=== PATIENT | male | born 1975 | race Caucasian/White ===

== ENCOUNTER 2020-01-19 03:32 | Emergency (ER) | payer SELFPAY ==
[~2020-01-19] VITALS: Ht 167.6 cm; Wt 69.0 kg
[2020-01-19] MEDS ORDERED: SODIUM CHLORIDE 0.9% 1,000 ML IV ONE (03:56)
[2020-01-19] MEDS ORDERED: LORAZEPAM 2MG/ML CPJ IM STA (03:56)
[2020-01-19] MEDS ORDERED: HALOPERIDOL LACTATE 5MG/ML VIAL IM STA (03:56)
[2020-01-19 04:30] LABS: EOSINOPHILS % 2.7 % (0.0-5.0); HEMATOCRIT. 47.3 % (42.0-52.0); HEMOGLOBIN. 16.2 g/dL (14.0-18.0); LYMPHOCYTES % 15.3 % (20.0-50.0); MEAN CORPUSCULAR HEMOGLOBIN 31.6 pg (28.0-32.0); MEAN CORPUSCULAR VOLUME 91.9 fL (80.0-94.0); MEAN PLATELET VOLUME 7.7 fl (7.4-10.4); MONOCYTES % 5.6 % (2.0-8.0); NEUTROPHILS % 75.4 % (40.0-76.0); PLATELET 339 x1000/uL (130-400); RED BLOOD CELL COUNT 5.14 mill/uL (4.7-6.1); RED CELL DISTRIBUTION WIDTH 13.7 % (11.6-14.6)
[2020-01-19 04:33] LABS: CHLORIDE 108 mEq/L (98-107)
[2020-01-19 04:38] LABS: ETHANOL BLOOD < 10 mg/dL
[2020-01-19 04:52] LABS: CREATINE KINASE 330 IU/L (39-308)
[2020-01-19 05:05] LABS: CLARITY URINE CLOUDY (CLEAR); COLOR URINE YELLOW (YELLOW); KETONES URINE NEGATIVE (NEGATIVE); LEUKOCYTE ESTERASE URINE NEGATIVE (NEGATIVE); NITRITE URINE NEGATIVE (NEGATIVE); OCCULT BLOOD URINE NEGATIVE (NEGATIVE); PH URINE 6.5 (4.5-8.0); PROTEIN URINE 2+ (NEGATIVE); SPECIFIC GRAVITY URINE 1.021 (1.005-1.030)
[2020-01-19 05:10] LABS: *AMPHETAMINES SCREEN URINE PRESUMTIVE POSITIVE (NEGATIVE); *BARBITURATES SCREEN URINE NEGATIVE (NEGATIVE); *BENZODIAZEPINES SCREEN URINE NEGATIVE (NEGATIVE); *COCAINE SCREEN URINE NEGATIVE (NEGATIVE); METHADONE URINE SCREEN NEGATIVE (NEGATIVE)
[2020-01-19 05:11] LABS: CANNABINOID URINE SCREEN NEGATIVE (NEGATIVE); OPIATES URINE SCREEN NEGATIVE (NEGATIVE); PHENCYCLIDINE URINE SCREEN NEGATIVE (NEGATIVE)
[2020-01-20 08:30] VITALS: BP 102/83
[2020-01-20] MEDS ORDERED: ACETAMINOPHEN 500MG TABLET PO ONE (09:45)
== END 2020-01-20 10:48 | disposition home or self-care (01) ==
LOC: ER 03:32 → EDBD 03:32 → ER 01-20 10:48
DX: F15.129 Other stimulant abuse with intoxication, unspecified (principal); F16.129 Hallucinogen abuse with intoxication, unspecified; G92 Toxic encephalopathy; F91.8 Other conduct disorders; R45.1 Restlessness and agitation; Z78.1 Physical restraint status; R73.9 Hyperglycemia, unspecified
CPT/HCPCS: 36415; 70450; 80053; 80305; 80307; 80320; 80329; 81003; 82550; 82962; 84443; 84484; 85025; 93005; 96372; 99285; J1630; J2060; J7030; G0480